=== PATIENT | female | born 1985 | race Caucasian/White ===

== ENCOUNTER 2016-10-04 18:49 | Emergency (ER) | payer OTHER, MEDICAID ==
[~2016-10-04 18:49] MED LIST: IBUP80TA PO; PERCOCET PO; VITAPRTA PO
[2016-10-04 22:11] LABS: BASO % 0.4 % (0.0-1.0); EOS # 0.4 K/mm3 (0.0-0.50); EOS % 4.7 % (0.0-3.0); LARGE UNSTAINED CELL # 0.1 K/mm3 (0.0-0.4); LARGE UNSTAINED CELL % 1.7 % (0.0-4.0); LYMPH # 3.3 K/mm3 (1.5-4.5); LYMPH % 43.4 % (24.0-44.0); MEAN CORPUSCULAR HEMOGLOBIN 22.1 pg (27.0-33.0); MEAN CORPUSCULAR HGB CONC 29.7 g/dl (32.0-36.5); MEAN CORPUSCULAR VOLUME 74.3 fl (80.0-96.0); MONO # 0.3 K/mm3 (0.0-0.8); MONO % 3.2 % (0.0-5.0); NEUTROPHILS # 3.6 K/mm3 (1.8-7.7); NEUTROPHILS % 46.6 % (36.0-66.0); PLATELET COUNT, AUTOMATED 289 k/mm3 (150-450); RED CELL DISTRIBUTION WIDTH 16.9 % (11.5-14.5); WHITE BLOOD COUNT 7.7 K/mm3 (4.0-10.0)
[2016-10-04 22:34] LABS: ADD MORPHOLOGY? YES; HYPOCHROMASIA 2+
[2016-10-04 22:35] LABS: ANISOCYTOSIS 1+; MICROCYTOSIS 1+
[2016-10-04 23:17] LABS: ANION GAP 8 MEQ/L (8-16); BLOOD UREA NITROGEN 6 MG/DL (7-18); CALCIUM LEVEL 8.4 MG/DL (8.5-10.1); CARBON DIOXIDE LEVEL 23 MEQ/L (21-32); CHLORIDE LEVEL 112 MEQ/L (98-107); CREATININE FOR GFR 0.62 MG/DL (0.55-1.02); GLOMERULAR FILTRATION RATE > 60.0 (>60); GLUCOSE, FASTING 93 MG/DL (70-105); POTASSIUM SERUM 3.9 MEQ/L (3.5-5.1); SODIUM LEVEL 143 MEQ/L (136-145)
--- NOTE | 2016-10-05 00:23 | EDDOCDS ---
Nurse's Notes [facility] Name: Samaria Beckman Age: 31 yrs Sex: Female : 1985 Arrival Date: 10/04/2016 Time: 18:49 Bed I4 / M4 Private MD: Alyssia - Complete Info On Cds Diagnosis: Dizziness and giddiness-VERTIGO Presentation: 10/04 19:14 Presenting complaint: states: dizziness, palpitation, nausea, feeling hot and rs3 cold, felt was going to pass out since this morning. Speech/hearing impaired. Adult Sepsis Screening: The patient does not have new or worsening altered mentation. Patient's respiratory rate is less than 22. Systolic blood pressure is greater than 100. Patient has a qSOFA score of 0- Negative Sepsis Screen. Suicide/Homicide risk assessment- the patient denies having any suicidal and/or homicidal ideations and does not present with any other emotional, behavioral or mental health complaints. Status: The patient is a dependent. Transition of care: patient was not received from another setting of care. 19:14 Acuity: CHETAN Level 3 rs3 19:14 Method Of Arrival: Walkin/Carried/Asstd rs3 Triage Assessment: 19:18 General: Appears in no apparent distress. Pain: Denies pain. Pt Declines HIV testing. 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 none - PMHx: hearing/speech impaired; - PSHx: Appendectomy; ; Cholecystectomy; cochlear implants; - Social history: Smoking status: Patient uses tobacco products, heavy tobacco smoker. No barriers to communication noted, Speaks appropriately for age. - Family history: Not pertinent. - : The pt / caregiver states he / she is not on anticoagulants. Home medication list is obtained from family members. - Exposure Risk Screening:: None identified. Screenin/13 00:19 Screening information is obtained from the patient. Fall risk: No risks identified. rw1 Assistance ADL's: requires no assistance with activities of daily living. Abuse/DV Screen: The patient / caregiver reports he/she is: not in a situation that causes fear, pain or injury. Nutritional screening: No deficits noted. Advance Directives: Currently, there is no health care proxy. home support is adequate. Assessment: 10/04 21:55 General: Appears in no apparent distress, Behavior is cooperative. Neurological: Level ms2 of Consciousness is awake, alert, obeys commands. Respiratory: No deficits noted. Airway is patent Respiratory effort is even, unlabored, Respiratory pattern is regular, symmetrical. GI: Abdomen is flat, non- distended. Derm: Skin is pink, warm & dry. Musculoskeletal: Range of motion intact in all extremities. 10/05 00:19 Reassessment: Patient appears in no apparent distress at this time. Patient denies pain rw1 at this time. Patient states feeling better. Patient states symptoms have improved. Vital Signs: 10/04 18:52 BP 117 / 76; Pulse 70; Resp 18 S; Temp 98.0(O); Pulse Ox 100% on R/A; Weight 42.18 kg gr2 (M); Height 5 ft. 0 in. (152.40 cm) (R); Pain 4/10; 21:34 BP 113 / 60 Supine; Pulse 63; ajs 21:34 BP 113 / 64 Sitting; Pulse 59; ajs 21:34 BP 119 / 66 Standing; Pulse 62; ajs 10/05 00:09 BP 107 / 57; Pulse 62; Resp 18; Temp 97.2; Pulse Ox 98% ; Pain 0/10; ajs 10/04 18:52 Body Mass Index 18.16 (42.18 kg, 152.40 cm) gr2 Vitals: 10/04 18:52 Log In Time: October 04, 2016 at 18:52. gr2 ED Course: 18:51 Patient visited by Regina Victoria. gr2 18:51 Patient moved to Waiting gr2 18:52 Other - Complete Info On Cds is Private Physician. gr2 18:53 Patient visited by Regina Victoria. gr2 18:53 Patient moved to Pre RCE gr2 19:17 Triage Initiated rs3 20:53 Patient moved to Triage 2 ld5 21:06 Jose Bella RPA-C is PHCP. ck7 21:06 Matthias Eugene DO is Attending Physician. ck7 21:06 Patient visited by Jose Bella RPA-C. ck7 21:17 EKG done. (by ED staff). Reviewed by Jose BUTTS. ld5 21:26 Patient moved to I4 / M4 ajs 21:35 Patient visited by Kalee Dean. ajs 21:55 Inserted peripheral IV: 20gauge IV in left hand Patient tolerated the procedure well. ms2 No procedures done that require assistance. 21:59 Patient visited by Kalee Dean. ajs 22:01 Patient visited by Thomas Browning RN. ms2 22:01 MED Profile Sent. ms2 22:01 CBC with Diff Sent. ms2 22:17 Patient visited by Thomas Browning RN. ms2 22:18 Missed attempts: 20 gauge X 1 in right antecubital area, Bleeding controlled, band aid ms2 applied, catheter tip intact. 22:49 Patient visited by Jose Bella RPA-C. ck7 23:18 Patient visited by Jose Bella RPA-C. ck7 23:36 [facility] Payment Agreement was scanned into [employer] and attached to record. ks16 10/05 00:03 Patient visited by Jose Bella RPA-C. ck7 00:10 Patient visited by Kalee Dean. ajs 00:19 The patient / caregiver is instructed regarding the plan of care and ED course. rw1 00:19 Discontinued IV lock intact, bleeding controlled, pressure dressing applied, No rw1 redness/swelling at site. Administered Medications: 10/04 22:10 Drug: Meclizine 25 mg [meclizine 12.5 mg tablet (2 tabs)] Route: PO; ms2 10/05 00:20 Follow up: Response: No Adverse Reaction rw10/04 22:10 Drug: NS 0.9% 1000 ml [sodium chloride 0.9 % injection syringe] Route: IV; Rate: bolus; ms2 Site: left hand; 10/05 00:21 Follow up: IV Status: Completed infusion rw1 10/04 22:13 Drug: Metoclopramide 10 mg [metoclopramide 5 mg/mL injection solution] Route: IV; Rate: ms2 40 mg/hr; Infused Over: 15 mins; Site: left hand; Point of Care Testing: Urine : 21:59 hCG Reading: Negative; Control Reading: Positive; ajs Ranges: Order Results: Lab Order: CBC with Diff; SPEC'M 10/04/16 21:43 Test: WHITE BLOOD COUNT; Value: 7.7; Range: 4.0-10.0; Units: K/mm3; Status: F Test: RED BLOOD COUNT; Value: 4.56; Range: 4.00-5.40; Units: M/mm3; Status: F Test: HEMOGLOBIN; Value: 10.1; Range: 12.0-16.0; Abnormal: Below low normal; Units: g/dl; Status: F Test: HEMATOCRIT; Value: 33.9; Range: 36.0-47.0; Abnormal: Below low normal; Units: %; Status: F Test: MEAN CORPUSCULAR VOLUME; Value: 74.3; Range: 80.0-96.0; Abnormal: Below low normal; Units: fl; Status: F Test: MEAN CORPUSCULAR HEMOGLOBIN; Value: 22.1; Range: 27.0-33.0; Abnormal: Below low normal; Units: pg; Status: F Test: MEAN CORPUSCULAR HGB CONC; Value: 29.7; Range: 32.0-36.5; Abnormal: Below low normal; Units: g/dl; Status: F Test: RED CELL DISTRIBUTION WIDTH; Value: 16.9; Range: 11.5-14.5; Abnormal: Above high normal; Units: %; Status: F Test: PLATELET COUNT, AUTOMATED; Value: 289; Range: 150-450; Units: k/mm3; Status: F Test: NEUTROPHILS %; Value: 46.6; Range: 36.0-66.0; Units: %; Status: F Test: LYMPH %; Value: 43.4; Range: 24.0-44.0; Units: %; Status: F Test: MONO %; Value: 3.2; Range: 0.0-5.0; Units: %; Status: F Test: EOS %; Value: 4.7; Range: 0.0-3.0; Abnormal: Above high normal; Units: %; Status: F Test: BASO %; Value: 0.4; Range: 0.0-1.0; Units: %; Status: F Test: LARGE UNSTAINED CELL %; Value: 1.7; Range: 0.0-4.0; Units: %; Status: F Test: NEUTROPHILS #; Value: 3.6; Range: 1.8-7.7; Units: K/mm3; Status: F Test: LYMPH #; Value: 3.3; Range: 1.5-4.5; Units: K/mm3; Status: F Test: MONO #; Value: 0.3; Range: 0.0-0.8; Units: K/mm3; Status: F Test: EOS #; Value: 0.4; Range: 0.0-0.50; Units: K/mm3; Status: F Test: BASO #; Value: 0.0; Range: 0.0-0.2; Units: K/mm3; Status: F Test: LARGE UNSTAINED CELL #; Value: 0.1; Range: 0.0-0.4; Units: K/mm3; Status: F Lab Order: MED Profile; SPEC'M 10/04/16 22:45 Test: GLUCOSE, FASTING; Value: 93; Range: 70-105; Units: MG/DL; Status: F Test: BLOOD UREA NITROGEN; Value: 6; Range: 7-18; Abnormal: Below low normal; Units: MG/DL; Status: F Test: CREATININE FOR GFR; Value: 0.62; Range: 0.55-1.02; Units: MG/DL; Status: F Test: GLOMERULAR FILTRATION RATE; Value: > 60.0; Range: >60; Status: F Test: SODIUM LEVEL; Value: 143; Range: 136-145; Units: MEQ/L; Status: F Test: POTASSIUM SERUM; Value: 3.9; Range: 3.5-5.1; Units: MEQ/L; Status: F Test: CHLORIDE LEVEL; Value: 112; Range: 98-107; Abnormal: Above high normal; Units: MEQ/L; Status: F Test: CARBON DIOXIDE LEVEL; Value: 23; Range: 21-32; Units: MEQ/L; Status: F Test: ANION GAP; Value: 8; Range: 8-16; Units: MEQ/L; Status: F Test: CALCIUM LEVEL; Value: 8.4; Range: 8.5-10.1; Abnormal: Below low normal; Units: MG/DL; Status: F Test Note: ; Units are mL/min/1.73 m2 Chronic Kidney Disease Staging per NKF: Stage I & II GFR >=60 Normal to Mildly Decreased Stage III GFR 30-59 Moderately Decreased Stage IV GFR 15-29 Severely Decreased Stage V GFR <15 Very Little GFR Left ESRD GFR <15 on RESIDENT HALL DIRECTOR Lab Order: RBC MORPH PROF NO CHARGE; SPEC'M 10/04/16 21:43 Test: HYPOCHROMASIA; Value: 2+; Status: F Test: ANISOCYTOSIS; Value: 1+; Status: F Test: MICROCYTOSIS; Value: 1+; Status: F Test: PLATELET ESTIMATE; Value: NORMAL; Range: NORMAL; Status: F Outcome: 10/05 00:08 Discharge ordered by Provider. ck7 00:21 Discharge Assessment: Patient awake, alert and oriented x 3. No cognitive and/or rw1 functional deficits noted. Patient verbalized understanding of disposition instructions. patient administered narcotics - no. The following High Risk Discharge criteria are identified: None. Discharged to home ambulatory, with significant other. Condition: stable Condition: improved. Discharge instructions given to patient, Instructed on discharge instructions, follow up and referral plans. medication usage, Demonstrated understanding of instructions, medications, Pt was receptive of discharge instructions/ teaching. Prescriptions given X 2. No special radiology studies were completed. Property sent home with patient. 00:22 Patient left the ED. rw1 Signatures: Thomas Browning,RN RN ms2 Rafat Sanders LPN LPN rw1 Kiana Garcia RN RN rs3 Zaira Padilla,RN RN ld5 Kalee Dean Christopher, RPA-C RPA-Cck7 Regina Victoria gr2 Jonelle Rizvi, Reg Reg ks16 Corrections: (The following items were deleted from the chart) 10/04 21:35 21:34 BP 113 / 60; Pulse 63bpm; ajs ajchad MTDD
--- NOTE | 2016-10-05 00:23 | EDDOCDS ---
Physician Documentation [facility] Name: Samaria Beckman Age: 31 yrs Sex: Female : 1985 Arrival Date: 10/04/2016 Time: 18:49 Bed I4 / M4 Private MD: Other - Complete Info On Cds Disposition: 10/05/16 00:08 Discharged to Home/Self Care. Impression: Dizziness and giddiness - VERTIGO. - Condition is Stable. - Discharge Instructions: Vertigo, [id number]. - Prescriptions for Meclizine 25 mg Oral Tablet - take 1 tablet by ORAL route every 8 hours As needed; 30 tablet. Reglan 10 mg Oral Tablet - take 1 tablet by ORAL route every 6 hours take 30 minutes before meals and at bedtime; 20 tablet. - Medication Reconciliation, Local Pharmacy Hours form. - Follow up: Private Physician; When: 1 - 2 days; Reason: Recheck today's complaints, Continuance of care. - Problem is new. - Symptoms have improved. - Notes: USE MEDICATIONS INSTRUCTED, FOLLOW UP WITH YOUR DOCTOR IN 2-3 DAYS, RETURN TO THE ER IF THE SYMPTOMS WORSEN OR BECOME CONCERNING Historical: - Allergies: PENICILLINS (Rash); - Home Meds: 1. none - PMHx: hearing/speech impaired; - PSHx: Appendectomy; ; Cholecystectomy; cochlear implants; - Social history: Smoking status: Patient uses tobacco products, heavy tobacco smoker. No barriers to communication noted, Speaks appropriately for age. - Family history: Not pertinent. - : The pt / caregiver states he / she is not on anticoagulants. Home medication list is obtained from family members. - Exposure Risk Screening:: None identified. 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 0 in. (152.40 cm) (R); Pain 4/10; 21:34 BP 113 / 60 Supine; Pulse 63; ajs 21:34 BP 113 / 64 Sitting; Pulse 59; ajs 21:34 BP 119 / 66 Standing; Pulse 62; ajs 10/05 00:09 BP 107 / 57; Pulse 62; Resp 18; Temp 97.2; Pulse Ox 98% ; Pain 0/10; ajs 10/04 18:52 Body Mass Index 18.16 (42.18 kg, 152.40 cm) gr2 MDM: 10/04 20:58 ECG WITH READING ER PHYS+CARDIAG ordered. EDMS 21:24 UCG by Nursing ordered. ck7 21:24 IV Saline Lock ordered. ck7 21:24 Metoclopramide 10 mg IV at 40 mg/hr once over 15 mins ordered. ck7 21:24 Meclizine 25 mg PO once ordered. ck7 21:24 NS 0.9% 1000 ml IV at bolus once ordered. ck7 21:24 Orthostatic VS ordered. ck7 21:24 CBC with Diff Ordered. EDMS 21:24 MED Profile Ordered. EDMS 22:40 CBC with Diff Reviewed. ck7 22:40 RBC MORPH PROF NO CHARGE Reviewed. ck7 22:52 Financial registration complete. ks16 23:19 MED Profile Reviewed. ck7 23:36 [facility] [place] was scanned into [employer] and attached to record. ks16 10/05 00:04 Ambulate Patient to Assess Patient Safety ordered. ck7 Point of Care Testing: Urine : 10/04 21:59 hCG Reading: Negative; Control Reading: Positive; ajs Ranges: Administered Medications: 22:10 Drug: Meclizine 25 mg [meclizine 12.5 mg tablet (2 tabs)] Route: PO; ms2 10/05 00:20 Follow up: Response: No Adverse Reaction [facility] 10/04 22:10 Drug: NS 0.9% 1000 ml [sodium chloride 0.9 % injection syringe] Route: IV; Rate: bolus; ms2 Site: left hand; 10/05 00:21 Follow up: IV Status: Completed infusion rw1 10/04 22:13 Drug: Metoclopramide 10 mg [metoclopramide 5 mg/mL injection solution] Route: IV; Rate: ms2 40 mg/hr; Infused Over: 15 mins; Site: left hand; Signatures: Dispatcher [employer] EDMT Rafat Sanders LPN LPN rw1 Kiana Garcia RN RN rs3 Jose Bella, RPA-C RPA-Jonelle Iqbal, Reg Reg ks16 Thomas Browning RN ms2 The chart was reviewed and I authenticate all verbal orders and agree with the evaluation and treatment provided.Attachments: 23:36 [facility] [place] ks16 MTDD
--- NOTE | 2016-10-05 08:44 | ECGEPIP ---
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 RBBB NONSPECIFIC T WAVE ABNORMALITIES NO PRIORS Electronically Signed On 10-05-2016 8:44:27 EST by Robert Orta
--- NOTE | 2016-10-07 01:23 | EDDOCDS ---
Physician Documentation [facility] Name: Samaria Beckman Age: 31 yrs Sex: Female : 1985 Arrival Date: 10/04/2016 Time: 18:49 Bed I4 / M4 Private MD: Other - Complete Info On Cds Disposition: 10/05/16 00:08 Discharged to Home/Self Care. Impression: Dizziness and giddiness - VERTIGO. - Condition is Stable. - Discharge Instructions: Vertigo, [id number]. - Prescriptions for Meclizine 25 mg Oral Tablet - take 1 tablet by ORAL route every 8 hours As needed; 30 tablet. Reglan 10 mg Oral Tablet - take 1 tablet by ORAL route every 6 hours take 30 minutes before meals and at bedtime; 20 tablet. - Medication Reconciliation, Local Pharmacy Hours form. - Follow up: Private Physician; When: 1 - 2 days; Reason: Recheck today's complaints, Continuance of care. - Problem is new. - Symptoms have improved. - Notes: USE MEDICATIONS INSTRUCTED, FOLLOW UP WITH YOUR DOCTOR IN 2-3 DAYS, RETURN TO THE ER IF THE SYMPTOMS WORSEN OR BECOME CONCERNING Historical: - Allergies: PENICILLINS (Rash); - Home Meds: 1. none - PMHx: hearing/speech impaired; - PSHx: Appendectomy; ; Cholecystectomy; cochlear implants; - Social history: Smoking status: Patient uses tobacco products, heavy tobacco smoker. No barriers to communication noted, Speaks appropriately for age. - Family history: Not pertinent. - : The pt / caregiver states he / she is not on anticoagulants. Home medication list is obtained from family members. - Exposure Risk Screening:: None identified. 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 0 in. (152.40 cm) (R); Pain 4/10; 21:34 BP 113 / 60 Supine; Pulse 63; ajs 21:34 BP 113 / 64 Sitting; Pulse 59; ajs 21:34 BP 119 / 66 Standing; Pulse 62; ajs 10/05 00:09 BP 107 / 57; Pulse 62; Resp 18; Temp 97.2; Pulse Ox 98% ; Pain 0/10; ajs 10/04 18:52 Body Mass Index 18.16 (42.18 kg, 152.40 cm) gr2 MDM: 10/04 20:58 ECG WITH READING ER PHYS+CARDIAG ordered. EDMS 21:24 UCG by Nursing ordered. ck7 21:24 IV Saline Lock ordered. ck7 21:24 Metoclopramide 10 mg IV at 40 mg/hr once over 15 mins ordered. ck7 21:24 Meclizine 25 mg PO once ordered. ck7 21:24 NS 0.9% 1000 ml IV at bolus once ordered. ck7 21:24 Orthostatic VS ordered. ck7 21:24 CBC with Diff Ordered. EDMS 21:24 MED Profile Ordered. EDMS 22:40 CBC with Diff Reviewed. ck7 22:40 RBC MORPH PROF NO CHARGE Reviewed. ck7 22:52 Financial registration complete. ks16 23:19 MED Profile Reviewed. ck7 23:36 [facility] Payment Agreement was scanned into [employer] and attached to record. ks16 10/05 00:04 Ambulate Patient to Assess Patient Safety ordered. ck7 09:38 T-Sheet-- Draft Copy was scanned into [employer] and attached to record. gb 09:39 ECG/EKG was scanned into [employer] and attached to record. gb Point of Care Testing: Urine : 10/04 21:59 hCG Reading: Negative; Control Reading: Positive; ajs Ranges: Administered Medications: 22:10 Drug: Meclizine 25 mg [meclizine 12.5 mg tablet (2 tabs)] Route: PO; ms2 10/05 00:20 Follow up: Response: No Adverse Reaction rw10/04 22:10 Drug: NS 0.9% 1000 ml [sodium chloride 0.9 % injection syringe] Route: IV; Rate: bolus; ms2 Site: left hand; 10/05 00:21 Follow up: IV Status: Completed infusion rw10/04 22:13 Drug: Metoclopramide 10 mg [metoclopramide 5 mg/mL injection solution] Route: IV; Rate: ms2 40 mg/hr; Infused Over: 15 mins; Site: left hand; Signatures: Dispatcher [employer] EDMS Leona Rodriguez, Reg Reg gb Rafat Sanders,HYDRAULIC LIFT DRIVER HYDRAULIC LIFT DRIVER rw1 Kiana Garcia,RN RN rs3 Jsoe Bella, RPA-C RPA-Cck7 Jonelle Rizvi, Reg Reg ks16 Thomas Browning RN ms2 The chart was reviewed and I authenticate all verbal orders and agree with the evaluation and treatment provided.Attachments: 23:36 [facility] Payment Agreement ks16 10/05 09:38 T-Sheet-- Draft Copy gb 09:39 ECG/EKG gb Chart Complete MTDD
--- NOTE | 2016-10-07 01:23 | EDDOCDS ---
Nurse's Notes [facility] Name: Jemima Beckman Age: 31 yrs Sex: Female : 1985 Arrival Date: 10/04/2016 Time: 18:49 Bed I4 / M4 Private MD: Alyssia - Complete Info On Cds Diagnosis: Dizziness and giddiness-VERTIGO Presentation: 10/04 19:14 Presenting complaint: states: dizziness, palpitation, nausea, feeling hot and rs3 cold, felt was going to pass out since this morning. Speech/hearing impaired. Adult Sepsis Screening: The patient does not have new or worsening altered mentation. Patient's respiratory rate is less than 22. Systolic blood pressure is greater than 100. Patient has a qSOFA score of 0- Negative Sepsis Screen. Suicide/Homicide risk assessment- the patient denies having any suicidal and/or homicidal ideations and does not present with any other emotional, behavioral or mental health complaints. Status: The patient is a dependent. Transition of care: patient was not received from another setting of care. 19:14 Acuity: CHETAN Level 3 rs3 19:14 Method Of Arrival: Walkin/Carried/Asstd rs3 Triage Assessment: 19:18 General: Appears in no apparent distress. Pain: Denies pain. Pt Declines HIV testing. 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 none - PMHx: hearing/speech impaired; - PSHx: Appendectomy; ; Cholecystectomy; cochlear implants; - Social history: Smoking status: Patient uses tobacco products, heavy tobacco smoker. No barriers to communication noted, Speaks appropriately for age. - Family history: Not pertinent. - : The pt / caregiver states he / she is not on anticoagulants. Home medication list is obtained from family members. - Exposure Risk Screening:: None identified. Screenin/13 00:19 Screening information is obtained from the patient. Fall risk: No risks identified. rw1 Assistance ADL's: requires no assistance with activities of daily living. Abuse/DV Screen: The patient / caregiver reports he/she is: not in a situation that causes fear, pain or injury. Nutritional screening: No deficits noted. Advance Directives: Currently, there is no health care proxy. home support is adequate. Assessment: 10/04 21:55 General: Appears in no apparent distress, Behavior is cooperative. Neurological: Level ms2 of Consciousness is awake, alert, obeys commands. Respiratory: No deficits noted. Airway is patent Respiratory effort is even, unlabored, Respiratory pattern is regular, symmetrical. GI: Abdomen is flat, non- distended. Derm: Skin is pink, warm & dry. Musculoskeletal: Range of motion intact in all extremities. 10/05 00:19 Reassessment: Patient appears in no apparent distress at this time. Patient denies pain rw1 at this time. Patient states feeling better. Patient states symptoms have improved. Vital Signs: 10/04 18:52 BP 117 / 76; Pulse 70; Resp 18 S; Temp 98.0(O); Pulse Ox 100% on R/A; Weight 42.18 kg gr2 (M); Height 5 ft. 0 in. (152.40 cm) (R); Pain 4/10; 21:34 BP 113 / 60 Supine; Pulse 63; ajs 21:34 BP 113 / 64 Sitting; Pulse 59; ajs 21:34 BP 119 / 66 Standing; Pulse 62; ajs 10/05 00:09 BP 107 / 57; Pulse 62; Resp 18; Temp 97.2; Pulse Ox 98% ; Pain 0/10; ajs 10/04 18:52 Body Mass Index 18.16 (42.18 kg, 152.40 cm) gr2 Vitals: 10/04 18:52 Log In Time: October 04, 2016 at 18:52. gr2 ED Course: 18:51 Patient visited by Regina Victoria. gr2 18:51 Patient moved to Waiting gr2 18:52 Other - Complete Info On Cds is Private Physician. gr2 18:53 Patient visited by Regina Victoria. gr2 18:53 Patient moved to Pre RCE gr2 19:17 Triage Initiated rs3 20:53 Patient moved to Triage 2 ld5 21:06 Jose Bella RPA-C is PHCP. ck7 21:06 Matthias Eugene DO is Attending Physician. ck7 21:06 Patient visited by Jose Bella RPA-C. ck7 21:17 EKG done. (by ED staff). Reviewed by Jose BUTTS. ld5 21:26 Patient moved to I4 / M4 ajs 21:35 Patient visited by Kalee Dean. ajs 21:55 Inserted peripheral IV: 20gauge IV in left hand Patient tolerated the procedure well. ms2 No procedures done that require assistance. 21:59 Patient visited by Kalee Dean. ajs 22:01 Patient visited by Thomas Browning RN. ms2 22:01 MED Profile Sent. ms2 22:01 CBC with Diff Sent. ms2 22:17 Patient visited by Thomas Browning RN. ms2 22:18 Missed attempts: 20 gauge X 1 in right antecubital area, Bleeding controlled, band aid ms2 applied, catheter tip intact. 22:49 Patient visited by Jose Bella RPA-C. ck7 23:18 Patient visited by Jose Bella RPA-C. ckHumaira 23:36 [facility] Payment Agreement was scanned into [employer] and attached to record. ks16 10/05 00:03 Patient visited by Jose Bella RPA-C. ck7 00:10 Patient visited by Kalee Dean. ajs 00:19 The patient / caregiver is instructed regarding the plan of care and ED course. rw1 00:19 Discontinued IV lock intact, bleeding controlled, pressure dressing applied, No rw1 redness/swelling at site. 09:06 EKG-ADULT Returned. EDMS 09:38 T-Sheet-- Draft Copy was scanned into [employer] and attached to record. gb 09:39 ECG/EKG was scanned into [employer] and attached to record. gb Administered Medications: 10/04 22:10 Drug: Meclizine 25 mg [meclizine 12.5 mg tablet (2 tabs)] Route: PO; ms2 10/05 00:20 Follow up: Response: No Adverse Reaction rw1 10/04 22:10 Drug: NS 0.9% 1000 ml [sodium chloride 0.9 % injection syringe] Route: IV; Rate: bolus; ms2 Site: left hand; 10/05 00:21 Follow up: IV Status: Completed infusion rw1 10/04 22:13 Drug: Metoclopramide 10 mg [metoclopramide 5 mg/mL injection solution] Route: IV; Rate: ms2 40 mg/hr; Infused Over: 15 mins; Site: left hand; Point of Care Testing: Urine : 21:59 hCG Reading: Negative; Control Reading: Positive; ajs Ranges: Order Results: Lab Order: CBC with Diff; SPEC'M 10/04/16 21:43 Test: WHITE BLOOD COUNT; Value: 7.7; Range: 4.0-10.0; Units: K/mm3; Status: F Test: RED BLOOD COUNT; Value: 4.56; Range: 4.00-5.40; Units: M/mm3; Status: F Test: HEMOGLOBIN; Value: 10.1; Range: 12.0-16.0; Abnormal: Below low normal; Units: g/dl; Status: F Test: HEMATOCRIT; Value: 33.9; Range: 36.0-47.0; Abnormal: Below low normal; Units: %; Status: F Test: MEAN CORPUSCULAR VOLUME; Value: 74.3; Range: 80.0-96.0; Abnormal: Below low normal; Units: fl; Status: F Test: MEAN CORPUSCULAR HEMOGLOBIN; Value: 22.1; Range: 27.0-33.0; Abnormal: Below low normal; Units: pg; Status: F Test: MEAN CORPUSCULAR HGB CONC; Value: 29.7; Range: 32.0-36.5; Abnormal: Below low normal; Units: g/dl; Status: F Test: RED CELL DISTRIBUTION WIDTH; Value: 16.9; Range: 11.5-14.5; Abnormal: Above high normal; Units: %; Status: F Test: PLATELET COUNT, AUTOMATED; Value: 289; Range: 150-450; Units: k/mm3; Status: F Test: NEUTROPHILS %; Value: 46.6; Range: 36.0-66.0; Units: %; Status: F Test: LYMPH %; Value: 43.4; Range: 24.0-44.0; Units: %; Status: F Test: MONO %; Value: 3.2; Range: 0.0-5.0; Units: %; Status: F Test: EOS %; Value: 4.7; Range: 0.0-3.0; Abnormal: Above high normal; Units: %; Status: F Test: BASO %; Value: 0.4; Range: 0.0-1.0; Units: %; Status: F Test: LARGE UNSTAINED CELL %; Value: 1.7; Range: 0.0-4.0; Units: %; Status: F Test: NEUTROPHILS #; Value: 3.6; Range: 1.8-7.7; Units: K/mm3; Status: F Test: LYMPH #; Value: 3.3; Range: 1.5-4.5; Units: K/mm3; Status: F Test: MONO #; Value: 0.3; Range: 0.0-0.8; Units: K/mm3; Status: F Test: EOS #; Value: 0.4; Range: 0.0-0.50; Units: K/mm3; Status: F Test: BASO #; Value: 0.0; Range: 0.0-0.2; Units: K/mm3; Status: F Test: LARGE UNSTAINED CELL #; Value: 0.1; Range: 0.0-0.4; Units: K/mm3; Status: F Lab Order: MED Profile; SPEC'M 10/04/16 22:45 Test: GLUCOSE, FASTING; Value: 93; Range: 70-105; Units: MG/DL; Status: F Test: BLOOD UREA NITROGEN; Value: 6; Range: 7-18; Abnormal: Below low normal; Units: MG/DL; Status: F Test: CREATININE FOR GFR; Value: 0.62; Range: 0.55-1.02; Units: MG/DL; Status: F Test: GLOMERULAR FILTRATION RATE; Value: > 60.0; Range: >60; Status: F Test: SODIUM LEVEL; Value: 143; Range: 136-145; Units: MEQ/L; Status: F Test: POTASSIUM SERUM; Value: 3.9; Range: 3.5-5.1; Units: MEQ/L; Status: F Test: CHLORIDE LEVEL; Value: 112; Range: 98-107; Abnormal: Above high normal; Units: MEQ/L; Status: F Test: CARBON DIOXIDE LEVEL; Value: 23; Range: 21-32; Units: MEQ/L; Status: F Test: ANION GAP; Value: 8; Range: 8-16; Units: MEQ/L; Status: F Test: CALCIUM LEVEL; Value: 8.4; Range: 8.5-10.1; Abnormal: Below low normal; Units: MG/DL; Status: F Test Note: ; Units are mL/min/1.73 m2 Chronic Kidney Disease Staging per NKF: Stage I & II GFR >=60 Normal to Mildly Decreased Stage III GFR 30-59 Moderately Decreased Stage IV GFR 15-29 Severely Decreased Stage V GFR <15 Very Little GFR Left ESRD GFR <15 on [employer] Lab Order: RBC MORPH PROF NO CHARGE; SPEC'M 10/04/16 21:43 Test: HYPOCHROMASIA; Value: 2+; Status: F Test: ANISOCYTOSIS; Value: 1+; Status: F Test: MICROCYTOSIS; Value: 1+; Status: F Test: PLATELET ESTIMATE; Value: NORMAL; Range: NORMAL; Status: F Radiology Order: EKG-ADULT Test: EKG-ADULT REASON FOR EXAMINATION: Chest Pain; Stationary ECG Study; [facility] - ED; ; Test Date: 2016-10-04; Pat Name: JEMIMA BECKMAN Department:; Room: -; Gender: F 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 RBBB; NONSPECIFIC T WAVE ABNORMALITIES; NO PRIORS; Electronically Signed On 10-05-2016 8:44:27 EST by Robert Orta; Outcome: 10/05 00:08 Discharge ordered by Provider. ck7 00:21 Discharge Assessment: Patient awake, alert and oriented x 3. No cognitive and/or rw1 functional deficits noted. Patient verbalized understanding of disposition instructions. patient administered narcotics - no. The following High Risk Discharge criteria are identified: None. Discharged to home ambulatory, with significant other. Condition: stable Condition: improved. Discharge instructions given to patient, Instructed on discharge instructions, follow up and referral plans. medication usage, Demonstrated understanding of instructions, medications, Pt was receptive of discharge instructions/ teaching. Prescriptions given X 2. No special radiology studies were completed. Property sent home with patient. 00:22 Patient left the ED. rw1 Signatures: Dispatcher [employer] Thomas FreemanRN RN ms2 Leona Rodriguez, Reg Reg gb Rafat Sanders,CLIENT DELIVERY MANAGER CLIENT DELIVERY MANAGER rw1 Kiana Garcia RN RN rs3 Zaira Padilla RN RN ld5 Kalee Dean Christopher, RPA-C RPA-Cck7 Regina Victoria2 Jonelle Rizvi, Reg Reg ks16 Corrections: (The following items were deleted from the chart) 10/04 21:35 21:34 BP 113 / 60; Pulse 63bpm; ajs kristie Chart Complete MTDD
--- NOTE | 2016-10-07 01:23 | EDDOCDS ---
Physician Documentation [facility] Name: Samaria Beckman Age: 31 yrs Sex: Female : 1985 Arrival Date: 10/04/2016 Time: 18:49 Bed I4 / M4 Private MD: Other - Complete Info On Cds Disposition: 10/05/16 00:08 Discharged to Home/Self Care. Impression: Dizziness and giddiness - VERTIGO. - Condition is Stable. - Discharge Instructions: Vertigo, [id number]. - Prescriptions for Meclizine 25 mg Oral Tablet - take 1 tablet by ORAL route every 8 hours As needed; 30 tablet. Reglan 10 mg Oral Tablet - take 1 tablet by ORAL route every 6 hours take 30 minutes before meals and at bedtime; 20 tablet. - Medication Reconciliation, Local Pharmacy Hours form. - Follow up: Private Physician; When: 1 - 2 days; Reason: Recheck today's complaints, Continuance of care. - Problem is new. - Symptoms have improved. - Notes: USE MEDICATIONS INSTRUCTED, FOLLOW UP WITH YOUR DOCTOR IN 2-3 DAYS, RETURN TO THE ER IF THE SYMPTOMS WORSEN OR BECOME CONCERNING Historical: - Allergies: PENICILLINS (Rash); - Home Meds: 1. none - PMHx: hearing/speech impaired; - PSHx: Appendectomy; ; Cholecystectomy; cochlear implants; - Social history: Smoking status: Patient uses tobacco products, heavy tobacco smoker. No barriers to communication noted, Speaks appropriately for age. - Family history: Not pertinent. - : The pt / caregiver states he / she is not on anticoagulants. Home medication list is obtained from family members. - Exposure Risk Screening:: None identified. 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 0 in. (152.40 cm) (R); Pain 4/10; 21:34 BP 113 / 60 Supine; Pulse 63; ajs 21:34 BP 113 / 64 Sitting; Pulse 59; ajs 21:34 BP 119 / 66 Standing; Pulse 62; ajs 10/05 00:09 BP 107 / 57; Pulse 62; Resp 18; Temp 97.2; Pulse Ox 98% ; Pain 0/10; ajs 10/04 18:52 Body Mass Index 18.16 (42.18 kg, 152.40 cm) gr2 MDM: 10/04 20:58 ECG WITH READING ER PHYS+CARDIAG ordered. EDMS 21:24 UCG by Nursing ordered. ck7 21:24 IV Saline Lock ordered. ck7 21:24 Metoclopramide 10 mg IV at 40 mg/hr once over 15 mins ordered. ck7 21:24 Meclizine 25 mg PO once ordered. ck7 21:24 NS 0.9% 1000 ml IV at bolus once ordered. ck7 21:24 Orthostatic VS ordered. ck7 21:24 CBC with Diff Ordered. EDMS 21:24 MED Profile Ordered. EDMS 22:40 CBC with Diff Reviewed. ck7 22:40 RBC MORPH PROF NO CHARGE Reviewed. ck7 22:52 Financial registration complete. ks16 23:19 MED Profile Reviewed. ck7 23:36 [facility] [place] Payment Agreement was scanned into [employer] and attached to record. ks16 10/05 00:04 Ambulate Patient to Assess Patient Safety ordered. ck7 09:38 T-Sheet-- Draft Copy was scanned into [employer] and attached to record. gb 09:39 ECG/EKG was scanned into [employer] and attached to record. gb Point of Care Testing: Urine : 10/04 21:59 hCG Reading: Negative; Control Reading: Positive; ajs Ranges: Administered Medications: 22:10 Drug: Meclizine 25 mg [meclizine 12.5 mg tablet (2 tabs)] Route: PO; ms2 10/05 00:20 Follow up: Response: No Adverse Reaction rw10/04 22:10 Drug: NS 0.9% 1000 ml [sodium chloride 0.9 % injection syringe] Route: IV; Rate: bolus; ms2 Site: left hand; 10/05 00:21 Follow up: IV Status: Completed infusion rw10/04 22:13 Drug: Metoclopramide 10 mg [metoclopramide 5 mg/mL injection solution] Route: IV; Rate: ms2 40 mg/hr; Infused Over: 15 mins; Site: left hand; Signatures: Dispatcher [employer] EDMS Leona Rodriguez, Reg Reg gb Rafat Sanders,EXHAUST EMISSIONS INSPECTOR EXHAUST EMISSIONS INSPECTOR rw1 Kiana Garcia,RN RN rs3 Jose Bella, RPA-C RPA-Cck7 Jonelle Rizvi, Reg Reg ks16 Thomas Browning RN ms2 The chart was reviewed and I authenticate all verbal orders and agree with the evaluation and treatment provided.Attachments: 23:36 [facility] Payment Agreement ks16 10/05 09:38 T-Sheet-- Draft Copy gb 09:39 ECG/EKG gb Chart Complete MTDD
== END 2016-10-05 00:22 | disposition home or self-care (01) ==
LOC: M ED 18:49
DX: R42 Dizziness and giddiness (principal); Z88.0 Allergy status to penicillin; F17.210 Nicotine dependence, cigarettes, uncomplicated

== ENCOUNTER → 2017-01-22 | Day surgery (SDC) | payer OTHER ==
[~2017-01-22] VITALS: Ht 152.4 cm; Wt 41.9 kg
[~2017-01-22] MED LIST changes: +ACETAMINOPHEN 650 MG SUPP As Ordered ONE; +ACETAMINOPHEN 650 MG SUPP PR ONE; +FERR325T3 PO; +HYDROmorphone HCL 1 MG/ML SYRINGE (J1170) IV PRN; +KETOROLAC 30 MG/ML VIAL (J1885) IV PRN; +KETOROLAC 60 MG/2 ML VIAL (J1885) As Ordered ONE; +LIDOCAINE 2% INJ 100 MG/5 ML SDV (FOR ANES.) As Ordered ONE; +LR 1,000 ML IV SCH; +MIDAZOLAM INJ 2 MG/2 ML VIAL (J2250) As Ordered ONE; +NS 1,000 ML IV SCH; +ONDANSETRON 4MG/2ML VIAL (J2405) As Ordered ONE; +ONDANSETRON 4MG/2ML VIAL (J2405) IV PRN; +PERCOCET 5MG/325MG TAB PO PRN; +PROPOFOL 200 MG/20 ML VIAL As Ordered ONE; +SODIUM CHLORIDE 0.9% 1000 ML IV ONE; +WELLTAB38 PO; +dexameTHASONE 4 MG/ML 1ML VIAL (J1100) As Ordered ONE; +ePHEDrine SULFATE 25 MG/5 ML(5MG/ML) SYRINGE As Ordered ONE; +fentaNYL 100 MCG/2 ML INJECTION (J3010) As Ordered ONE; +fentaNYL 100 MCG/2 ML INJECTION (J3010) IV PRN
[2017-01-22 09:25] LABS: MEAN CORPUSCULAR HEMOGLOBIN 30.4 pg (27.0-33.0); MEAN CORPUSCULAR VOLUME 92.1 fl (80.0-96.0); RED CELL DISTRIBUTION WIDTH 15.7 % (11.5-14.5); WHITE BLOOD COUNT 6.8 K/mm3 (4.0-10.0)
[2017-01-22 09:44] LABS: ANION GAP 8 MEQ/L (8-16); BLOOD UREA NITROGEN 10 MG/DL (7-18); CALCIUM LEVEL 8.8 MG/DL (8.5-10.1); CARBON DIOXIDE LEVEL 23 MEQ/L (21-32); CHLORIDE LEVEL 109 MEQ/L (98-107); CREATININE FOR GFR 0.83 MG/DL (0.55-1.02); GLOMERULAR FILTRATION RATE > 60.0 (>60); GLUCOSE, FASTING 89 MG/DL (70-105); HCG, SERUM QUANTITATIVE < 1.0 MIU/ML; POTASSIUM SERUM 3.9 MEQ/L (3.5-5.1); SODIUM LEVEL 140 MEQ/L (136-145)
[2017-01-22 14:00] VITALS: BP 100/55
--- NOTE | 2017-01-29 20:06 | RO ---
DATE OF PROCEDURE: 01/22/2017 PREOPERATIVE NOTE: Dysfunctional uterine bleeding, endometrial polyp. POSTOPERATIVE DIAGNOSIS: Dysfunction uterine bleeding, endometrial polyp, cervical stenosis. OPERATION PROPOSED: Hysteroscopy, dilation and curettage (D and C), placement of Mirena intrauterine contraceptive device (IUCD). OPERATION PERFORMED: Hysteroscopy, dilation and curettage (D and C), placement of Mirena intrauterine contraceptive device (IUCD). SURGEON: Dr. Srinivas Lincoln REGISTERED NURSE PRACTITIONER: ANESTHESIA: General. ESTIMATED BLOOD LOSS: Less than 20 mL. DESCRIPTION OF PROCEDURE: After adequate anesthesia and adequate time-out, prepped and draped in lithotomy position, bladder was drained for 150 mL of clear urine. Weighted speculum in vagina. This lady has extremely poor tissues because she is malnourished and basically the tissue turgor is nonexistent. Therefore, with a single-tooth tenaculum on the anterior lip of the cervix, we found that she had significant cervical stenosis of the retroverted retroflexed uterus. We gently dilated up as far as we could to put at 2.7 mm hysteroscope in the uterus. On examination, there was some polypoid tissue and some fluffy endometrial tissue. This was removed and sent to pathology under separate cover. Os on the right was normal loss, os on the left was normal. The rest of the architecture appeared to be normal. Uterus sounded to a depth of 8 inches. With that done, because this lady requests preservation of her fertility, we put a Mirena IUCD in, cut the strings to 2 inches from the os. The instrument pad counts were correct, and the patient was then sent to recovery in good condition. Copy To: Juan Triana OB
== END ==
LOC: M SDC 08:19
PROVIDERS: ATTEND Obstetrics & Gynecology
DX: N93.9 Abnormal uterine and vaginal bleeding, unspecified (principal); N84.0 Polyp of corpus uteri; N88.2 Stricture and stenosis of cervix uteri; Z30.430 Encounter for insertion of intrauterine contraceptive device; H91.90 Unspecified hearing loss, unspecified ear; F17.210 Nicotine dependence, cigarettes, uncomplicated; Z79.899 Other long term (current) drug therapy
CPT/HCPCS: 36415; 58300; 58558; 80048; 84702; 85027; 88305; J1100; J1885; J2250; J2405; J3010; J7298

== ENCOUNTER 2017-03-31 19:10 | Emergency (ER) | payer OTHER ==
[~2017-03-31] VITALS: Ht 154.9 cm; Wt 41.4 kg
[~2017-03-31 19:10] MED LIST changes: -ACETAMINOPHEN 650 MG SUPP As Ordered ONE; -ACETAMINOPHEN 650 MG SUPP PR ONE; -HYDROmorphone HCL 1 MG/ML SYRINGE (J1170) IV PRN; -KETOROLAC 30 MG/ML VIAL (J1885) IV PRN; -KETOROLAC 60 MG/2 ML VIAL (J1885) As Ordered ONE; -LIDOCAINE 2% INJ 100 MG/5 ML SDV (FOR ANES.) As Ordered ONE; -LR 1,000 ML IV SCH; -MIDAZOLAM INJ 2 MG/2 ML VIAL (J2250) As Ordered ONE; -NS 1,000 ML IV SCH; -ONDANSETRON 4MG/2ML VIAL (J2405) As Ordered ONE; -ONDANSETRON 4MG/2ML VIAL (J2405) IV PRN; -PERCOCET 5MG/325MG TAB PO PRN; -PROPOFOL 200 MG/20 ML VIAL As Ordered ONE; -SODIUM CHLORIDE 0.9% 1000 ML IV ONE; -dexameTHASONE 4 MG/ML 1ML VIAL (J1100) As Ordered ONE; -ePHEDrine SULFATE 25 MG/5 ML(5MG/ML) SYRINGE As Ordered ONE; -fentaNYL 100 MCG/2 ML INJECTION (J3010) As Ordered ONE; -fentaNYL 100 MCG/2 ML INJECTION (J3010) IV PRN
[2017-03-31 22:36] LABS: BASO % 0.4 % (0.0-1.0); EOS # 0.4 K/mm3 (0.0-0.50); EOS % 2.9 % (0.0-3.0); LARGE UNSTAINED CELL # 0.1 K/mm3 (0.0-0.4); LYMPH # 2.5 K/mm3 (1.5-4.5); LYMPH % 18.3 % (24.0-44.0); MEAN CORPUSCULAR HEMOGLOBIN 31.8 pg (27.0-33.0); MEAN CORPUSCULAR HGB CONC 33.8 g/dl (32.0-36.5); MEAN CORPUSCULAR VOLUME 94.1 fl (80.0-96.0); MONO # 0.4 K/mm3 (0.0-0.8); MONO % 3.3 % (0.0-5.0); NEUTROPHILS # 9.7 K/mm3 (1.8-7.7); NEUTROPHILS % 74.1 % (36.0-66.0); PLATELET COUNT, AUTOMATED 244 k/mm3 (150-450); RED CELL DISTRIBUTION WIDTH 12.6 % (11.5-14.5)
[2017-03-31 23:03] LABS: INR 1.06
[2017-03-31 23:12] LABS: CONTROL LINE HCG INT CTR LINE PRESENT
[2017-03-31 23:28] LABS: ANION GAP 7 MEQ/L (8-16); BLOOD UREA NITROGEN 6 MG/DL (7-18); CALCIUM LEVEL 8.8 MG/DL (8.5-10.1); CARBON DIOXIDE LEVEL 24 MEQ/L (21-32); CHLORIDE LEVEL 109 MEQ/L (98-107); CREATININE FOR GFR 0.61 MG/DL (0.55-1.02); FREE T4 1.04 NG/DL (0.76-1.46); GLOMERULAR FILTRATION RATE > 60.0 (>60); GLUCOSE, FASTING 105 MG/DL (70-105); MAGNESIUM LEVEL 2.5 MG/DL (1.8-2.4); PHOSPHORUS LEVEL 2.6 MG/DL (2.5-4.9); POTASSIUM SERUM 3.9 MEQ/L (3.5-5.1); SODIUM LEVEL 140 MEQ/L (136-145)
[2017-03-31 23:53] VITALS: BP 116/52
--- NOTE | 2017-04-01 01:25 | REP ---
Clinical: Near-syncopal episode . Comparison: 12/19/2005 . Technique: PA and lateral. Findings: The mediastinum and cardiac silhouette are normal. The lung toney are clear and without acute consolidation, effusion, or pneumothorax. The skeletal structures are intact and normal. Impression: 1. No acute cardiopulmonary process. Signed by Khurram Bang MD 04/01/2017 01:16 A
--- NOTE | 2017-04-01 05:59 | ECGEPIP ---
Stationary ECG Study [facility] - ED Test Date: 2017-03-31 Pat Name: JEMIMA STORY Department: Room: - Gender: F Activity Specialist: : 1985 Requested By: POLA REID Order Number: [id number] Reading MD: Robert Orta Measurements Intervals [place] Rate: 67 P: -3 CA: 125 QRS: 76 QRSD: 93 T: 65 QT: 396 QTc: 418 Interpretive Statements SINUS RHYTHM Electronically Signed On 04-01-2017 5:59:30 EDT by Robert Orta
== END 2017-03-31 23:54 | disposition home or self-care (01) ==
LOC: M ED 19:10
DX: R55 Syncope and collapse (principal); R79.0 Abnormal level of blood mineral; H91.93 Unspecified hearing loss, bilateral; Z96.21 Cochlear implant status; F17.200 Nicotine dependence, unspecified, uncomplicated; Z79.899 Other long term (current) drug therapy; Z88.0 Allergy status to penicillin

== ENCOUNTER 2017-05-13 09:05 | Emergency (ER) | payer OTHER ==
[~2017-05-13] VITALS: Ht 152.4 cm; Wt 41.4 kg
[2017-05-13] MEDS ORDERED: MOTR200T44 PO (11:42)
[2017-05-13 11:51] VITALS: BP 119/70
== END 2017-05-13 11:54 | disposition home or self-care (01) ==
LOC: M ED 09:05
DX: I83.811 Varicose veins of right lower extremity with pain (principal); F17.200 Nicotine dependence, unspecified, uncomplicated; Z88.0 Allergy status to penicillin; Z79.899 Other long term (current) drug therapy

== ENCOUNTER 2017-11-06 14:48 | Outpatient (RCR) | payer OTHER | END 2017-11-20 | LOC: M ST 11-13 12:30 | DX: Z51.89 Encounter for other specified aftercare (principal); H91.90 Unspecified hearing loss, unspecified ear ==

== ENCOUNTER 2017-11-29 12:51 | Outpatient (RCR) | payer OTHER | END 2017-12-21 | LOC: M ST 12:51 | DX: Z51.89 Encounter for other specified aftercare (principal); H91.90 Unspecified hearing loss, unspecified ear ==

== ENCOUNTER 2017-12-24 10:24 | Outpatient (RCR) | payer OTHER | END 2018-01-20 | LOC: M ST 10:24 | DX: Z51.89 Encounter for other specified aftercare (principal); H91.93 Unspecified hearing loss, bilateral ==

== ENCOUNTER 2018-08-17 20:54 | Emergency (ER) | payer OTHER ==
[2018-08-17] MEDS: IBUPROFEN 600 MG TAB PO (22:22)
[2018-08-17] MEDS: BENZONATATE 100 MG CAP PO (22:22)
[2018-08-17 22:56] LABS: INFLUENZA A AMPLIFICATION NEGATIVE (NEGATIVE); INFLUENZA B AMPLIFICATION NEGATIVE (NEGATIVE)
== END 2018-08-17 23:14 | disposition home or self-care (01) ==
LOC: M ED 20:54
DX: J06.9 Acute upper respiratory infection, unspecified (principal); B34.9 Viral infection, unspecified; F17.200 Nicotine dependence, unspecified, uncomplicated
CPT/HCPCS: 87502

== ENCOUNTER 2018-11-17 16:41 | Emergency (ER) | payer OTHER ==
[~2018-11-17] VITALS: Ht 152.4 cm; Wt 40.5 kg
[~2018-11-17 16:41] MED LIST changes: +IBUP-1022 PO; +MOTR200T44 PO; +PSEU1TAB3 PO; +TESS100C PO
[2018-11-17] MEDS ORDERED: VENL150C43 (16:59)
[2018-11-17] MEDS ORDERED: ALPR0.25 (16:59)
[2018-11-17] MEDS ORDERED: GI COCKTAIL 50ML BTL(HYOSCYAMINE/MAALOX/LIDOCAINE VISCOUS)(1:3:1) PO ONE (18:45)
[2018-11-17] MEDS ORDERED: KETOROLAC 30 MG/ML VIAL (J1885) IV ONE (18:45)
[2018-11-17] MEDS ORDERED: NS 1,000 ML IV ONE (18:45)
[2018-11-17] MEDS ORDERED: ONDANSETRON 4MG/2ML VIAL (J2405) IV ONE (18:45)
[2018-11-17 20:09] LABS: BASO # 0.1 10^3/uL (0.0-0.2); BASO % 0.6 % (0.0-1.0); EOS # 0.4 10^3/uL (0.0-0.50); HEMATOCRIT 43.5 % (36.0-47.0); HEMOGLOBIN 14.4 g/dl (12.0-15.5); LYMPH # 3.8 10^3/uL (1.5-4.5); LYMPH % 31.7 % (24.0-44.0); MEAN CORPUSCULAR HEMOGLOBIN 29.7 pg (27.0-33.0); MEAN CORPUSCULAR HGB CONC 33.1 g/dl (32.0-36.5); MEAN CORPUSCULAR VOLUME 89.7 fl (80.0-96.0); MONO # 0.6 10^3/uL (0.0-0.8); MONO % 5.4 % (0.0-5.0); PLATELET COUNT, AUTOMATED 273 10^3/uL (150-450); RED BLOOD COUNT 4.85 10^6/uL (4.00-5.40); WHITE BLOOD COUNT 11.8 10^3/uL (4.0-10.0)
[2018-11-17 20:31] LABS: HCG, SERUM QUALITATIVE NEGATIVE (NEGATIVE)
[2018-11-17 20:33] LABS: BLOOD UREA NITROGEN 5 MG/DL (7-18); CALCIUM LEVEL 8.9 MG/DL (8.5-10.1); CARBON DIOXIDE LEVEL 25 MEQ/L (21-32); CHLORIDE LEVEL 109 MEQ/L (98-107); CREATININE FOR GFR 0.63 MG/DL (0.55-1.30); GLOMERULAR FILTRATION RATE > 60.0 (>60); GLUCOSE, FASTING 84 MG/DL (70-100); LIPASE 109 U/L (73-393); POTASSIUM SERUM 3.5 MEQ/L (3.5-5.1); SODIUM LEVEL 142 MEQ/L (136-145)
[2018-11-17] MEDS ORDERED: ISOVUE-370 76% 100ML VIAL (Q9967) As Ordered ONE (20:37)
--- NOTE | 2018-11-17 21:25 | REPVR ---
EXAM: US Pelvis Complete, Transabdominal EXAM DATE/TIME: 11/17/2018 8:32 PM CLINICAL HISTORY: 33 years old, female; Pain and signs and symptoms; Menstruation abnormalities; Excessive menstruation; With irregular cycle; Abdominal pain; Lower abdomen; Prior surgery; Surgery date: 6+ months; Surgery type: Tubal; Additional info: Heavy vag bleeding x 1 mo TECHNIQUE: Real-time transabdominal pelvic ultrasound with image documentation. Complete exam. COMPARISON: US PELVIC NON-OB COMPLETE 08/24/2012 6:40 PM FINDINGS: Uterus/cervix: The uterus is retroverted. The uterus measures 8.2 CM in length by 4.6 CM in AP dimension by 5.9 cm transverse dimension. The endometrium measures approximately 1 CM in thickness and probably secretory type endometrium. Right adnexa: The right ovary measures 3.0 CM in length by 1.3 CM in thickness. There is vascular flow the right ovary. Left adnexa: The left ovary measures 3.3 CM in length by 2.4 CM in thickness. The left ovary measures 3.1 CM in length by 2.3 CM in thickness. 1.5 CM hemorrhagic cyst of the left ovary. There is vascular flow noted left ovary. There was a 3 CM cyst left ovary in 2011. Free fluid: None. Bladder: Normal appearing urinary bladder. IMPRESSION: 1. Retroverted uterus. 2. 1.5 CM hemorrhagic cyst left ovary recommend followup study to ensure that this resolves. Electronically signed by: Young Cooper On 11/17/2018 21:24:46 PM
--- NOTE | 2018-11-17 21:31 | REP ---
Clinical: Generalized abdominal pain and menorrhagia. Technique: Axial contrast enhanced images from the lung bases to the pubic symphysis using 100 ml Isovue 370 intravenous contrast material with coronal and sagittal re-formations. Comparison: 05/28/2012. Findings: Lung bases are clear. Visualized heart and pericardium normal. Liver, spleen, pancreas, bilateral adrenal glands and kidneys are normal. Evidence for prior cholecystectomy. The enteric system is without obstruction or acute inflammatory process. Evaluation of the pelvis demonstrates enlarged heterogeneous retroverted uterus and 1.7 cm left ovarian cyst likely dominant follicle. No ascites. No free air. No obvious adenopathy. Abdominal aorta and vasculature without aneurysm or dissection. Surrounding musculoskeletal structures are intact without focal osseous abnormality. Impression: 1. Enlarged heterogeneous retroverted uterus and 1.7 cm left ovarian cyst should be correlated with physical examination and pelvic ultrasound. 2. No further acute abdominopelvic pathology appreciated. 3. Specifically, no adenopathy, ascites, or focal inflammatory stranding noted. Electronically Signed by Khurram Bang MD 11/17/2018 09:23 P
[2018-11-17] MEDS ORDERED: DICY10CA13 PO (22:22)
[2018-11-17] MEDS ORDERED: REGL10TA6 PO (22:22)
[2018-11-17 22:35] VITALS: BP 124/74
--- NOTE | 2018-11-18 12:36 | ED PDOC ---
Post-Departure Follow-Up [facility] advanced registered nurse and [facility] faxed formal report of pelvic us for fu Brittany Timmons MD Nov 18, 2018 12:36
== END 2018-11-17 22:34 | disposition home or self-care (01) ==
LOC: M ED 16:41
DX: N93.8 Other specified abnormal uterine and vaginal bleeding (principal); N92.0 Excessive and frequent menstruation with regular cycle; R10.9 Unspecified abdominal pain; R11.0 Nausea; D64.9 Anemia, unspecified; H91.93 Unspecified hearing loss, bilateral; F17.200 Nicotine dependence, unspecified, uncomplicated; Z88.0 Allergy status to penicillin; Z79.899 Other long term (current) drug therapy
CPT/HCPCS: 36415; 74177; 76830; 76856; 80048; 81001; 83690; 84443; 84703; 85025; 86850; 86900; 86901; 87086; 93976; 96361; 96374; 96375; 99284; J1885; J2405; Q9967

== ENCOUNTER 2019-03-17 20:31 | Emergency (ER) | payer OTHER ==
[~2019-03-17] VITALS: Ht 152.4 cm; Wt 40.9 kg
[~2019-03-17 20:31] MED LIST changes: +ALPR0.25; +DICY10CA13 PO; +REGL10TA6 PO; +VENL150C43
[2019-03-17] MEDS ORDERED: BUSP5TA (20:39)
[2019-03-17 21:35] LABS: BASO # 0.1 10^3/uL (0.0-0.2); BASO % 0.6 % (0.0-1.0); EOS # 0.5 10^3/uL (0.0-0.50); EOS % 4.3 % (0.0-3.0); HEMATOCRIT 42.6 % (36.0-47.0); HEMOGLOBIN 14.3 g/dl (12.0-15.5); LYMPH # 4.2 10^3/uL (1.5-4.5); MEAN CORPUSCULAR HEMOGLOBIN 28.8 pg (27.0-33.0); MEAN CORPUSCULAR HGB CONC 33.6 g/dl (32.0-36.5); MEAN CORPUSCULAR VOLUME 85.9 fl (80.0-96.0); MONO # 0.8 10^3/uL (0.0-0.8); MONO % 7.2 % (0.0-5.0); NEUTROPHILS % 47.6 % (36.0-66.0); PLATELET COUNT, AUTOMATED 265 10^3/uL (150-450); RED BLOOD COUNT 4.96 10^6/uL (4.00-5.40); WHITE BLOOD COUNT 10.4 10^3/uL (4.0-10.0)
[2019-03-17 21:41] LABS: HCG, SERUM QUALITATIVE NEGATIVE (NEGATIVE)
[2019-03-17 21:48] LABS: ALBUMIN 4.2 GM/DL (3.2-5.2); ALT/SGPT 24 U/L (12-78); BILIRUBIN,DIRECT < 0.1 MG/DL (0.0-0.2); BILIRUBIN,TOTAL 0.3 MG/DL (0.2-1.0); BLOOD UREA NITROGEN 14 MG/DL (7-18); CALCIUM LEVEL 9.5 MG/DL (8.5-10.1); CARBON DIOXIDE LEVEL 26 MEQ/L (21-32); CHLORIDE LEVEL 106 MEQ/L (98-107); CREATININE FOR GFR 0.81 MG/DL (0.55-1.30); GLOMERULAR FILTRATION RATE > 60.0 (>60); GLUCOSE, FASTING 84 MG/DL (70-100); LIPASE 118 U/L (73-393); POTASSIUM SERUM 3.3 MEQ/L (3.5-5.1); SODIUM LEVEL 140 MEQ/L (136-145); TOTAL PROTEIN 7.6 GM/DL (6.4-8.2)
[2019-03-17] MEDS ORDERED: GI COCKTAIL 50ML BTL(HYOSCYAMINE/MAALOX/LIDOCAINE VISCOUS)(1:3:1) PO ONE (23:30)
[2019-03-17] MEDS ORDERED: PANTOPRAZOLE 40MG INJ (PROTONIX) (C9113) IV ONE (23:30)
[2019-03-17] MEDS ORDERED: ONDANSETRON 4MG/2ML VIAL (J2405) IV ONE (23:30)
[2019-03-17] MEDS ORDERED: SUCRALFATE 1 GM TAB PO ONE (23:30)
[2019-03-17] MEDS ORDERED: NS 1,000 ML IV ONE (23:30)
[2019-03-18] MEDS ORDERED: ONDANSETRON 4 MG ORAL DISINTEGRATING TAB (Q0162 PER 1MG) PO ONE (00:15)
[2019-03-18] MEDS ORDERED: PANTOPRAZOLE 40MG TAB (PROTONIX) PO ONE (00:15)
[2019-03-18] MEDS ORDERED: OMEP-218 PO (00:45)
[2019-03-18] MEDS ORDERED: CARA1TAB6 PO (00:45)
[2019-03-18 01:13] VITALS: BP 122/70
== END 2019-03-18 01:16 | disposition home or self-care (01) ==
LOC: M ED 20:31
DX: R10.13 Epigastric pain (principal); H91.93 Unspecified hearing loss, bilateral; Z79.899 Other long term (current) drug therapy; Z88.0 Allergy status to penicillin; F17.210 Nicotine dependence, cigarettes, uncomplicated
CPT/HCPCS: 36415; 80048; 80076; 81001; 83690; 84703; 85025; 87086; 99284; Q0162

== ENCOUNTER → 2019-11-03 | Outpatient (REF) | payer OTHER ==
[~2019-11-03] MED LIST changes: +BUSP5TA; +CARA1TAB6 PO; +OMEP-218 PO
[2019-11-03 18:40] LABS: BASO # 0.1 10^3/uL (0.0-0.2); BASO % 0.7 % (0.0-1.0); EOS # 0.3 10^3/uL (0.0-0.5); EOS % 3.4 % (0.0-3.0); HEMATOCRIT 44.8 % (36.0-47.0); LYMPH % 35.7 % (24.0-44.0); MEAN CORPUSCULAR HEMOGLOBIN 28.5 pg (27.0-33.0); MEAN CORPUSCULAR HGB CONC 31.3 g/dl (32.0-36.5); MEAN CORPUSCULAR VOLUME 91.2 fl (80.0-96.0); MONO # 0.8 10^3/uL (0.0-0.8); NEUTROPHILS # 4.3 10^3/uL (1.5-8.5); PLATELET COUNT, AUTOMATED 344 10^3/uL (150-450); RED BLOOD COUNT 4.91 10^6/uL (4.00-5.40); WHITE BLOOD COUNT 8.5 10^3/uL (4.0-10.0)
[2019-11-03 19:07] LABS: ALBUMIN 4.1 GM/DL (3.2-5.2); ALT/SGPT 23 U/L (12-78); BILIRUBIN,TOTAL 0.4 MG/DL (0.2-1.0); BLOOD UREA NITROGEN 6 MG/DL (7-18); CALCIUM LEVEL 8.9 MG/DL (8.5-10.1); CARBON DIOXIDE LEVEL 28 MEQ/L (21-32); CHLORIDE LEVEL 105 MEQ/L (98-107); CREATININE FOR GFR 0.67 MG/DL (0.55-1.30); GLOMERULAR FILTRATION RATE > 60.0 (>60); GLUCOSE, FASTING 72 MG/DL (70-100); POTASSIUM SERUM 3.7 MEQ/L (3.5-5.1); SODIUM LEVEL 139 MEQ/L (136-145); TOTAL PROTEIN 7.2 GM/DL (6.4-8.2)
[2019-11-04 10:38] LABS: VITAMIN B12 LEVEL 472 PG/ML (247-911)
== END ==
LOC: M SFHCPLAZ 13:53
PROVIDERS: ATTEND Nurse Practitioner Family
DX: R51 Headache (principal)

== ENCOUNTER 2020-01-14 14:43 | Emergency (ER) | payer OTHER ==
[~2020-01-14] VITALS: Ht 152.4 cm; Wt 41.7 kg
[2020-01-14] MEDS ORDERED: ONDANSETRON 4MG/2ML VIAL IV ONE (16:45)
[2020-01-14] MEDS ORDERED: MORPHINE 2 MG/ML 1ML VIAL (J2270) IV ONE (16:45)
[2020-01-14] MEDS ORDERED: NS 1,000 ML IV ONE ×2 (16:45→18:30)
[2020-01-14 17:35] LABS: BASO # 0.1 10^3/uL (0.0-0.2); EOS # 0.3 10^3/uL (0.0-0.5); HEMOGLOBIN 13.6 g/dl (12.0-15.5); LYMPH # 2.8 10^3/uL (1.5-5.0); LYMPH % 34.1 % (24.0-44.0); MEAN CORPUSCULAR HEMOGLOBIN 29.8 pg (27.0-33.0); MEAN CORPUSCULAR VOLUME 87.7 fl (80.0-96.0); MONO # 0.5 10^3/uL (0.0-0.8); MONO % 6.3 % (0.0-5.0); NEUTROPHILS # 4.6 10^3/uL (1.5-8.5); NEUTROPHILS % 55.2 % (36.0-66.0); PLATELET COUNT, AUTOMATED 243 10^3/uL (150-450); RED BLOOD COUNT 4.56 10^6/uL (4.00-5.40); WHITE BLOOD COUNT 8.3 10^3/uL (4.0-10.0)
[2020-01-14 18:09] LABS: ALBUMIN 3.9 GM/DL (3.2-5.2); BILIRUBIN,DIRECT 0.2 MG/DL (0.0-0.2); BILIRUBIN,TOTAL 0.4 MG/DL (0.2-1.0); TOTAL PROTEIN 7.1 GM/DL (6.4-8.2)
[2020-01-14] MEDS: GASTROGRAFIN SOLUTION 30ML PO SCH ×2 (18:23→18:24)
[2020-01-14 18:45] LABS: INR 1.12; PROTHROMBIN TIME 14.1 SECONDS (11.8-14.0)
[2020-01-14 18:46] LABS: PARTIAL THROMBOPLASTIN TIME 31.4 SECONDS (25.0-38.4)
[2020-01-14] MEDS ORDERED: KETOROLAC 30 MG/ML 1ML VIAL IV ONE (19:00)
[2020-01-14] MEDS ORDERED: DICYCLOMINE 10 MG CAP PO ONE ×2 (19:30→20:30)
--- NOTE | 2020-01-14 20:04 | REPVR ---
PROCEDURE INFORMATION: Exam: US Pelvis Complete, Transabdominal Exam date and time: 01/14/2020 7:35 PM Age: 34 years old Clinical indication: Pelvic pain; Additional info: Right pelvic pain, heavy vaginal bleeding TECHNIQUE: Imaging protocol: Real-time transabdominal pelvic ultrasound with image documentation. Complete exam. COMPARISON: US PELVIC NON-OB COMPLETE 11/17/2018 8:01 PM FINDINGS: Uterus/cervix: The uterus measures 9.2 x 4.2 x 5.0 cm. No uterine mass identified. The endometrial thickness is 0.4 cm, which is within normal limits. Trace endometrial fluid is visualized. The uterus is retroverted. Right adnexa: The right ovary measures 3.0 x 1.7 x 2.8 cm. There is preservation of blood flow within the right ovary. Right ovarian follicles are identified. Within the right ovary, there is an ovoid lesion of increased echogenicity measuring 1.6 x 1.4 x 1.7 cm, suggestive of a complex/hemorrhagic cyst. This is new compared to the prior study. Left adnexa: The left ovary measures 2.7 x 2.7 x 2.0 cm. There is preservation of blood flow within the left ovary. Left ovarian follicles are identified. There is resolution of the previously visualized left ovarian hemorrhagic cyst. Free fluid: None. Bladder: The bladder measures 8.0 x 3.1 x 7.8 cm. No visualized bladder wall thickening. IMPRESSION: 1. Trace endometrial fluid is visualized. 2. Within the right ovary, there is an ovoid echogenic lesion, suggestive of a complex/hemorrhagic cyst. This is new compared to the prior study. Follow-up ultrasonography recommended. 3. Left ovarian follicles are identified. There is resolution of the previously visualized left ovarian hemorrhagic cyst. 4. Additional findings described above. Electronically signed by: Juan Motta On 01/14/2020 20:04:17 PM
[2020-01-14] MEDS ORDERED: DICY10CA13 PO ×2 (20:24→20:48)
[2020-01-14 20:45] VITALS: BP 110/68
--- NOTE | 2020-01-15 13:48 | ED PDOC ---
Post-Departure Follow-Up certified letter sent to pt re formal read of pelvic us for fu. obtain pcp name and fax report. if no pcp refer to [facility] and fax there Brittany Timmons MD Jan 15, 2020 13:48
== END 2020-01-14 20:48 | disposition home or self-care (01) ==
LOC: M ED 14:43
DX: R10.31 Right lower quadrant pain (principal); R19.7 Diarrhea, unspecified; N83.201 Unspecified ovarian cyst, right side; K21.9 Gastro-esophageal reflux disease without esophagitis; F17.218 Nicotine dependence, cigarettes, with other nicotine-induced disorders; Z88.0 Allergy status to penicillin; Z96.21 Cochlear implant status
CPT/HCPCS: 36415; 76856; 80047; 80076; 81001; 83690; 84702; 85025; 85610; 85730; 86850; 86900; 86901; 87088; 87186; 93976; 96361; 96374; 96375; 99285; J1885; J2270; J2405

== ENCOUNTER → 2020-05-25 | Outpatient (CLI) | payer OTHER ==
--- NOTE | 2020-06-21 13:42 | REP ---
PELVIC ULTRASOUND CLINICAL: Follow-up ovarian cyst with right lower quadrant pain. TECHNIQUE: Transabdominal pelvic ultrasound with color Doppler evaluation. COMPARISON: 01/14/2020. FINDINGS: Ultrasound examination again demonstrates heterogeneous retroverted uterus measuring 9.4 x 3.8 x 5.9 cm. The endometrial complex measures 10 mm in thickness. No discrete uterine or endometrium abnormality identified. The right ovary is normal in appearance and vascularity measuring 2.2 x 1.4 x 1.5 cm (RI 0.56). Multiple follicles are identified without discrete cyst. The left ovary is not visualized due to overlying interposed bowel gas. No pelvic fluid or adnexal mass lesion. Bladder is normal and measures 7.8 x 6.7 x 1.4 cm. IMPRESSION: Normal retroverted uterus and right ovary. Previously noted right ovarian cyst has resolved. Left ovary not visualized due to overlying bowel gas. MTDD
== END ==
LOC: M PLAIMG 11:13
PROVIDERS: ATTEND Family Medicine
DX: R10.2 Pelvic and perineal pain (principal)

== ENCOUNTER 2020-12-07 16:13 | Emergency (ER) | payer OTHER ==
[~2020-12-07] VITALS: Ht 152.4 cm; Wt 38.6 kg
[2020-12-07] MEDS ORDERED: NS 1,000 ML IV ONE (16:55)
[2020-12-07] MEDS ORDERED: ONDANSETRON 4MG/2ML VIAL IV ONE (17:00)
[2020-12-07] MEDS ORDERED: MORPHINE 2 MG/ML 1ML VIAL (J2270) IV PRN (17:00)
--- NOTE | 2020-12-07 18:45 | REP ---
INDICATION: severe right lower pain ?torsion. COMPARISON: 05/25/2020. TECHNIQUE: Multiple ultrasonographic images of the pelvis including Doppler ultrasound. A note from the lead enterprise architect states that the patient is nonverbal, therefore no endovaginal imaging is performed. The study is performed with transabdominal imaging. Patient complains of right sided abdominal pain. FINDINGS: The uterus is anteverted and normal size measuring 7.8 x 5.2 x 4.9 cm. The endometrium is significantly thickened for patient age measuring up to 14 mm. Consideration might be given to gynecologic consultation for endometrial tissue sampling. Right ovary: The right ovary measures 3.3 x 2.3 x 2.9 cm and is normal size. However, there is a complex mass within the right ovary containing thickened irregular septa measuring 1.5 x 1.6 x 1.6 cm. This is nonspecific and could represent a multiloculated cyst, infected cyst or neoplasm. Pelvic MRI might be considered for follow-up imaging. Left ovary: The left ovary measures 2.6 x 1.8 x 1.7 cm and is normal size. There is no dominant left ovarian mass or cyst. With Doppler evaluation there is vascular flow in both right and left ovaries. There is a cyst of index in the parenchymal arteries of the right ovary is 0.58 the left ovary 0.47. There is a small volume of free fluid in the posterior cul-de-sac. IMPRESSION: There is a complex mass in the right ovary measuring 1.6 cm as discussed above. Gynecologic consultation should be considered. Pelvic MRI might be considered for follow-up imaging. <Electronically signed by Gume Nails > 12/07/20 0811
[2020-12-07 18:51] LABS: BASO % 0.4 % (0.0-1.0); EOS # 0.2 10^3/uL (0.0-0.5); EOS % 1.7 % (0.0-3.0); HEMATOCRIT 41.6 % (36.0-47.0); HEMOGLOBIN 13.8 g/dl (12.0-15.5); LYMPH # 3.1 10^3/uL (1.5-5.0); LYMPH % 29.3 % (24.0-44.0); MEAN CORPUSCULAR HEMOGLOBIN 29.2 pg (27.0-33.0); MEAN CORPUSCULAR HGB CONC 33.2 g/dl (32.0-36.5); MEAN CORPUSCULAR VOLUME 88.1 fl (80.0-96.0); MONO # 0.7 10^3/uL (0.0-0.8); MONO % 6.8 % (2.0-8.0); NEUTROPHILS # 6.4 10^3/uL (1.5-8.5); NEUTROPHILS % 61.5 % (36.0-66.0); PLATELET COUNT, AUTOMATED 264 10^3/uL (150-450); RED BLOOD COUNT 4.72 10^6/uL (4.00-5.40); WHITE BLOOD COUNT 10.5 10^3/uL (4.0-10.0)
[2020-12-07] MEDS ORDERED: HYDR-3715 PO (18:56)
[2020-12-07 19:23] LABS: BLOOD UREA NITROGEN 12 MG/DL (7-18); CALCIUM LEVEL 9.1 MG/DL (8.5-10.1); CARBON DIOXIDE LEVEL 24 MEQ/L (21-32); CHLORIDE LEVEL 110 MEQ/L (98-107); CREATININE FOR GFR 0.48 MG/DL (0.55-1.30); GLOMERULAR FILTRATION RATE > 60.0 (>60); GLUCOSE, FASTING 80 MG/DL (70-100); POTASSIUM SERUM 3.6 MEQ/L (3.5-5.1); SODIUM LEVEL 142 MEQ/L (136-145)
[2020-12-07 19:46] VITALS: BP 121/70
--- NOTE | 2020-12-08 01:10 | ECGEPIP ---
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
== END 2020-12-07 19:48 | disposition home or self-care (01) ==
LOC: M ED 16:13
DX: N83.201 Unspecified ovarian cyst, right side (principal); R55 Syncope and collapse; R56.9 Unspecified convulsions; F41.9 Anxiety disorder, unspecified; H91.3 Deaf nonspeaking, not elsewhere classified; Z96.21 Cochlear implant status; Z88.0 Allergy status to penicillin; Z79.899 Other long term (current) drug therapy
CPT/HCPCS: 36415; 76856; 80048; 84443; 84702; 85025; 93005; 93041; 93976; 94760; 96361; 96374; 96375; 99285; J2270; J2405

== ENCOUNTER → 2021-01-30 | Outpatient (CLI) | payer OTHER ==
[~2021-01-30] MED LIST changes: +E-Z-GAS II EFFERVESCENT PACKET (SODIUM BICARB./CITRIC ACID/SIMETHICONE) As Ordered ONE; +E-Z-HD 98% w/w 340GM SUSP BTL As Ordered ONE; +E-Z-PAQUE 96% w/w SUSP 176GM BTL As Ordered ONE; +HYDR-3715 PO
--- NOTE | 2021-01-30 18:48 | REP ---
INDICATION: GERD. COMPARISON: None. TECHNIQUE: The procedure was performed under the direct supervision of Dr. Gaxiola. The images were reviewed with Dr. Gaxiola. Liquid barium and gas producing crystals were given in the erect position as well as liquid barium in the prone oblique position in order to perform a double contrast upper GI examination. Additionally liquid barium was given at the end of the examination in order to perform a small bowel follow through. A combination od fluoroscopy, spot films and last image hold technology was utilized, 3.7 minutes of fluoro time was utilized for this procedure. FINDINGS: The systems technician film shows no organomegaly or pathological masses. The intestinal gas pattern is non-specific. There are surgical clips noted in the right upper quadrant. There are tubal ligation clips noted within the pelvis. The oral and pharyngeal stages of deglutition are unremarkable. Esophageal transport is prompt and efficient and there is no esophagitis, stricture, mucosal ring or hiatal hernia. The stomach corona are normally outlined. The rugal folds are smooth and regular. There is no gastritis neoplasm or ulcer disease. The duodenal corona are normally outlined . The mucosal folds are smooth and regular. There is no duodenitis pancreatitis peptic ulcer disease or neoplasm. The visualized portion of the proximal small bowel appears normal in course and caliber. The barium column was followed through the small bowel to the level of the terminal ileum. Small bowel transit time is rapid as there is contrast seen in the cecum at the 0 minutes film. During fluoroscopy gentle palpation shows all loops are freely movable and pliable. There are no fixed or angulated loops. The small bowel mucosal pattern is normal in course and caliber. There is no transition to suggest a partial small-bowel obstruction. Spot filming of the terminal ileum shows it to be unremarkable. IMPRESSION: Small bowel transit time is rapid as there is contrast seen in the cecum on the 0 minutes film. Otherwise, unremarkable double contrast upper GI and small bowel follow through examination. <Electronically signed by Mark Gipson > 01/30/21 1508 <Electronically signed by Gume Gaxiola > 01/30/21 [id number]
== END ==
LOC: M RAD 09:24
PROVIDERS: ATTEND Nurse Practitioner Family
DX: K21.9 Gastro-esophageal reflux disease without esophagitis (principal)

== ENCOUNTER → 2021-02-03 | Outpatient (CLI) | payer OTHER ==
[~2021-02-03] MED LIST changes: -E-Z-GAS II EFFERVESCENT PACKET (SODIUM BICARB./CITRIC ACID/SIMETHICONE) As Ordered ONE; -E-Z-HD 98% w/w 340GM SUSP BTL As Ordered ONE; -E-Z-PAQUE 96% w/w SUSP 176GM BTL As Ordered ONE
--- NOTE | 2021-02-05 07:23 | REP ---
INDICATION: N83.201 RT OVARIAN CYST COMPARISON: 12/07/2020 TECHNIQUE: Transabdominal pelvic ultrasound followed by transvaginal examination for better evaluation of the endometrium and adnexa with color Doppler evaluation of the ovaries. FINDINGS: Bladder is unremarkable and measures 5.1 x 2.1 x 6.6 cm. Normal anteverted uterus measures 8.0 x 4.6 x 5.3 cm. The endometrial complex measures 7.2 mm thickness. No discrete uterine or endometrial abnormalities are appreciated. Bilateral ovaries are normal in appearance and vascularity without evidence for torsion. Right ovary measures 2.7 x 1.5 x 1.7 cm; R I = 0.56. Left ovary measures 2.6 x 1.3 x 2.0 cm; R I = 0.52. No pelvic fluid or adnexal mass lesion. IMPRESSION: Normal pelvic ultrasound. Previous ovarian cyst resolved. <Electronically signed by Khurram Bang > 02/05/21 0719
== END ==
LOC: M WHC 13:54
PROVIDERS: ATTEND Nurse Practitioner Women's Health
DX: N83.201 Unspecified ovarian cyst, right side (principal)

== ENCOUNTER → 2021-04-03 | Outpatient (REF) | payer OTHER ==
[2021-04-03 21:31] LABS: CLOSTRIDIUM DIFFICILE PCR NEGATIVE (NEGATIVE)
[2021-04-11 08:15] LABS: CALPROTECTIN STOOL <16 ug/g (0-120); FATS NEUTRAL Normal (.); FATS TOTAL Normal (.); H PYLORI STOOL ANTIGEN Positive (Negative)
== END ==
LOC: M LAB REF 16:51
PROVIDERS: ATTEND Internal Medicine Gastroenterology
DX: R19.7 Diarrhea, unspecified (principal)

== ENCOUNTER → 2021-04-12 | Outpatient (CLI) | payer OTHER ==
[2021-04-12 14:12] LABS: BASO # 0.1 10^3/uL (0.0-0.2); BASO % 0.8 % (0.0-1.0); EOS # 0.4 10^3/uL (0.0-0.5); EOS % 4.3 % (0.0-3.0); HEMATOCRIT 43.6 % (36.0-47.0); HEMOGLOBIN 14.3 g/dl (12.0-15.5); LYMPH # 3.1 10^3/uL (1.5-5.0); LYMPH % 36.2 % (24.0-44.0); MEAN CORPUSCULAR HEMOGLOBIN 29.1 pg (27.0-33.0); MEAN CORPUSCULAR HGB CONC 32.8 g/dl (32.0-36.5); MEAN CORPUSCULAR VOLUME 88.8 fl (80.0-96.0); MONO # 0.8 10^3/uL (0.0-0.8); MONO % 8.9 % (2.0-8.0); NEUTROPHILS # 4.2 10^3/uL (1.5-8.5); NEUTROPHILS % 49.7 % (36.0-66.0); PLATELET COUNT, AUTOMATED 316 10^3/uL (150-450); RED BLOOD COUNT 4.91 10^6/uL (4.00-5.40); WHITE BLOOD COUNT 8.5 10^3/uL (4.0-10.0)
[2021-04-12 14:47] LABS: ALBUMIN 4.3 GM/DL (3.2-5.2); ALT/SGPT 21 U/L (12-78); BILIRUBIN,TOTAL 0.5 MG/DL (0.2-1.0); BLOOD UREA NITROGEN 4 MG/DL (7-18); CALCIUM LEVEL 9.1 MG/DL (8.5-10.1); CARBON DIOXIDE LEVEL 23 MEQ/L (21-32); CHLORIDE LEVEL 109 MEQ/L (98-107); CREATININE FOR GFR 0.65 MG/DL (0.55-1.30); FOLATE 12.6 NG/ML (>5.4); FREE T4 1.06 NG/DL (0.76-1.46); GLOMERULAR FILTRATION RATE > 60.0 (>60); GLUCOSE, FASTING 57 MG/DL (70-100); POTASSIUM SERUM 3.9 MEQ/L (3.5-5.1); SODIUM LEVEL 140 MEQ/L (136-145); TOTAL PROTEIN 7.6 GM/DL (6.4-8.2); VITAMIN B12 LEVEL 429 PG/ML (247-911)
== END ==
LOC: M PLALAB 09:18
PROVIDERS: ATTEND Nurse Practitioner Family
DX: R20.0 Anesthesia of skin (principal); F41.1 Generalized anxiety disorder

== ENCOUNTER → 2021-05-04 | Outpatient (CLI) | payer OTHER ==
[~2021-05-04] MED LIST changes: +DICY10SO PO; +OMEP-221 PO; +SERT25TA21 PO
== END ==
LOC: M LABSMTC 10:09
PROVIDERS: ATTEND Anesthesiology
DX: Z01.818 Encounter for other preprocedural examination (principal); Z11.52 Encounter for screening for COVID-19

== ENCOUNTER 2021-05-09 08:14 | Day surgery (SDC) | payer OTHER ==
[~2021-05-09] VITALS: Ht 152.4 cm; Wt 40.7 kg
[~2021-05-09 08:14] MED LIST changes: +LIDOCAINE 2% 100MG/5ML SDV (FOR ANES.) As Ordered ONE; +NS 1,000 ML IV ONE; +propofoL 200 MG/20 ML VIAL As Ordered ONE
[2021-05-09] MEDS ORDERED: MELA10CA6 PO (09:06)
--- NOTE | 2021-05-09 09:45 | ROOR ---
Patient Name: Samaria Beckman Procedure Date: 05/09/2021 9:21 AM Date of : 1985 Age: 36 Room: [facility] Gender: Female Note Status: Finalized Procedure: Upper GI endoscopy Indications: Dysphagia, Epigastric abdominal pain Providers: Alex Santana MD Referring MD: Lilly Garcia Requesting Provider: Medicines: Monitored Anesthesia Care Complications: No immediate complications. Procedure: Pre-Anesthesia Assessment: - Prior to the procedure, a History and Physical was performed, and patient medications and allergies were reviewed. The patient is competent. The risks and benefits of the procedure and the sedation options and risks were discussed with the patient. All questions were answered and informed consent was obtained. Patient identification and proposed procedure were verified by the physician, the nurse and the anesthesiologist in the procedure room. Mental Status Examination: alert and oriented. Airway Examination: normal oropharyngeal airway and neck mobility. Respiratory Examination: clear to auscultation. CV Examination: normal. Prophylactic Antibiotics: The patient does not require prophylactic antibiotics. Prior Anticoagulants: The patient has taken no previous anticoagulant or antiplatelet agents. ASA Grade Assessment: II - A patient with mild systemic disease. After reviewing the risks and benefits, the patient was deemed in satisfactory condition to undergo the procedure. The anesthesia plan was to use monitored anesthesia care (MAC). Immediately prior to administration of medications, the patient was re-assessed for adequacy to receive sedatives. The heart rate, respiratory rate, oxygen saturations, blood pressure, adequacy of pulmonary ventilation, and response to care were monitored throughout the procedure. The physical status of the patient was re-assessed after the procedure. The Endoscope was introduced through the mouth, and advanced to the second part of duodenum. The upper GI endoscopy was accomplished without difficulty. The patient tolerated the procedure well. Findings: No gross lesions were noted in the entire esophagus. Biopsies were obtained from the proximal and distal esophagus with cold forceps for histology of suspected eosinophilic esophagitis. Verification of patient identification for the specimen was done by the physician and nurse using the patient's name, date and medical record number. Estimated blood loss was minimal. Scattered moderate inflammation characterized by erythema and granularity was found in the gastric antrum. Biopsies were taken with a cold forceps for Helicobacter pylori testing. The duodenal bulb and second portion of the duodenum were normal. Biopsies for histology were taken with a cold forceps for evaluation of celiac disease. Impression: - No gross lesions in esophagus. Biopsied. - Gastritis. Biopsied. - Normal duodenal bulb and second portion of the duodenum. Biopsied. Recommendation: - Patient has a contact number available for emergencies. The signs and symptoms of potential delayed complications were discussed with the patient. Return to normal activities tomorrow. Written discharge instructions were provided to the patient. - High fiber diet. - Continue present medications. - Await pathology results. - Use sucralfate suspension 1 gram PO QID for 4 weeks. - Return to GI clinic in [facility] (address [address], [address], [place], [facility] [place]) in 4 -- 6 weeks. Please call GI clinic @ [phone] for apppointment date and time. - Return to primary care physician. Procedure Code(s): --- Professional --- 84708, Esophagogastroduodenoscopy, flexible, transoral; with biopsy, single or multiple Diagnosis Code(s): --- Professional --- K29.70, Gastritis, unspecified, without bleeding R13.10, Dysphagia, unspecified R10.13, Epigastric pain CPT copyright 2019 [employer]. All rights reserved. The codes documented in this report are preliminary and upon scale agent review may be revised to meet current compliance requirements. Alex Santana MD Alex Santana MD 05/09/2021 9:44:45 AM Electronically signed by Alex Santana MD Number of Addenda: 0 Note Initiated On: 05/09/2021 9:21 AM Estimated Blood Loss: Estimated blood loss was minimal.
[2021-05-09 10:07] VITALS: BP 116/61
== END 2021-05-09 10:09 | disposition home or self-care (01) ==
LOC: M OPP 08:14
PROVIDERS: ATTEND Internal Medicine Gastroenterology
DX: K29.70 Gastritis, unspecified, without bleeding (principal); B96.81 Helicobacter pylori [H. pylori] as the cause of diseases classified elsewhere; R13.10 Dysphagia, unspecified; R10.13 Epigastric pain; Z79.899 Other long term (current) drug therapy; Z88.0 Allergy status to penicillin; F17.210 Nicotine dependence, cigarettes, uncomplicated

== ENCOUNTER → 2021-09-04 | Outpatient (CLI) | payer OTHER ==
[~2021-09-04] MED LIST changes: -LIDOCAINE 2% 100MG/5ML SDV (FOR ANES.) As Ordered ONE; +MELA10CA6 PO; -NS 1,000 ML IV ONE; -propofoL 200 MG/20 ML VIAL As Ordered ONE
[2021-09-04 11:09] LABS: BASO # 0.1 10^3/uL (0.0-0.2); BASO % 0.8 % (0.0-1.0); EOS # 0.2 10^3/uL (0.0-0.5); EOS % 2.1 % (0.0-3.0); HEMATOCRIT 42.7 % (36.0-47.0); LYMPH # 2.3 10^3/uL (1.5-5.0); LYMPH % 21.2 % (24.0-44.0); MEAN CORPUSCULAR HEMOGLOBIN 28.9 pg (27.0-33.0); MEAN CORPUSCULAR HGB CONC 32.8 g/dl (32.0-36.5); MONO # 0.8 10^3/uL (0.0-0.8); MONO % 7.3 % (2.0-8.0); NEUTROPHILS # 7.2 10^3/uL (1.5-8.5); NEUTROPHILS % 68.3 % (36.0-66.0); PLATELET COUNT, AUTOMATED 310 10^3/uL (150-450); RED BLOOD COUNT 4.85 10^6/uL (4.00-5.40); WHITE BLOOD COUNT 10.6 10^3/uL (4.0-10.0)
[2021-09-04 11:29] LABS: HEMOGLOBIN A1c 5.2 %
[2021-09-04 11:38] LABS: ALBUMIN 3.9 GM/DL (3.2-5.2); ALT/SGPT 24 U/L (12-78); BILIRUBIN,DIRECT 0.1 MG/DL (0.0-0.2); BILIRUBIN,TOTAL 0.4 MG/DL (0.2-1.0); BLOOD UREA NITROGEN 5 MG/DL (7-18); CALCIUM LEVEL 9.2 MG/DL (8.5-10.1); CARBON DIOXIDE LEVEL 25 MEQ/L (21-32); CHLORIDE LEVEL 107 MEQ/L (98-107); CHOLESTEROL LEVEL 183 MG/DL (<200); CHOLESTEROL RISK RATIO 2.506 (<5); CREATININE FOR GFR 0.61 MG/DL (0.55-1.30); FREE T3 3.6 PG/ML (2.2-4.0); FREE T4 1.11 NG/DL (0.76-1.46); GLOMERULAR FILTRATION RATE > 60.0 (>60); GLUCOSE, FASTING 89 MG/DL (70-100); HDL CHOLESTEROL 73 MG/DL (>40); LDL CHOLESTEROL 96 MG/DL (<100); NON-HDL-C 110 MG/DL; PHOSPHORUS LEVEL 3.2 MG/DL (2.5-4.9); POTASSIUM SERUM 3.7 MEQ/L (3.5-5.1); SODIUM LEVEL 141 MEQ/L (136-145); TOTAL PROTEIN 7.1 GM/DL (6.4-8.2); TRIGLYCERIDES LEVEL 69 MG/DL (<150)
[2021-09-04 11:39] LABS: TOTAL 25(OH) VITAMIN D 15.9 NG/ML (30.0-100.0)
== END ==
LOC: M EKG 10:02
PROVIDERS: ATTEND Nurse Practitioner Psychiatric/Mental Health
DX: F32.9 Major depressive disorder, single episode, unspecified (principal); F41.1 Generalized anxiety disorder

== ENCOUNTER → 2021-11-29 | Outpatient (REF) | payer OTHER ==
[~2021-11-29] MED LIST changes: +OMEP-173 PO; -OMEP-218 PO; -OMEP-221 PO; +OMEP40CA5 PO
[2021-11-29 21:52] LABS: GC DNA AMPLIFICATION NEGATIVE (NEGATIVE)
== END ==
LOC: M LAB REF 19:33
PROVIDERS: ATTEND Physician Assistant
DX: R10.30 Lower abdominal pain, unspecified (principal)

== ENCOUNTER 2022-11-18 07:25 | Emergency (ER) | payer OTHER ==
[~2022-11-18] VITALS: Ht 152.4 cm; Wt 41.4 kg
[2022-11-18] MEDS ORDERED: NS 1,000 ML IV SCH ×2 (07:35)
[2022-11-18 08:06] LABS: VENOUS BASE EXCESS -0.5 (-2.0-2.0); VENOUS HCO3 25.3 MEQ/L (23.0-27.0); VENOUS O2 SATURATION 92.9 % (60.0-80.0); VENOUS PARTIAL PRESSURE CO2 45.8 mmHg (38.0-50.0); VENOUS PARTIAL PRESSURE O2 66.8 mmHg (30.0-50.0); VENOUS STANDARD HCO3 23.9 MEQ/L; VENOUS TOTAL CO2 26.7 MEQ/L (24.0-28.0)
[2022-11-18 08:07] LABS: BASO # 0.1 10^3/uL (0.0-0.2); BASO % 1.3 % (0.0-1.0); EOS # 0.2 10^3/uL (0.0-0.5); EOS % 3.2 % (0.0-3.0); HEMATOCRIT 42.1 % (36.0-47.0); HEMOGLOBIN 13.5 g/dl (12.0-15.5); LYMPH # 2.4 10^3/uL (1.5-5.0); LYMPH % 45.2 % (24.0-44.0); MEAN CORPUSCULAR HEMOGLOBIN 26.6 pg (27.0-33.0); MEAN CORPUSCULAR HGB CONC 32.1 g/dl (32.0-36.5); MONO # 0.3 10^3/uL (0.0-0.8); NEUTROPHILS # 2.3 10^3/uL (1.5-8.5); NEUTROPHILS % 44.1 % (36.0-66.0); RED BLOOD COUNT 5.07 10^6/uL (4.00-5.40); WHITE BLOOD COUNT 5.3 10^3/uL (4.0-10.0)
[2022-11-18] MEDS ORDERED: MIRT-10 (08:32)
[2022-11-18] MEDS ORDERED: HYDR-643 (08:32)
[2022-11-18] MEDS ORDERED: CITA20TA7 (08:32)
[2022-11-18 08:36] LABS: ETHYL ALCOHOL (ETHANOL) 0.164 % (0.000-0.010)
[2022-11-18 08:42] LABS: HCG, SERUM QUALITATIVE NEGATIVE (NEGATIVE)
[2022-11-18 08:45] LABS: ALKALINE PHOSPHATASE 154 U/L (46-116); ALT/SGPT 19 U/L (7.0-40); AST/SGOT 30 U/L (<34); BILIRUBIN,DIRECT < 0.1 MG/DL (<0.4); BILIRUBIN,TOTAL 0.2 MG/DL (0.3-1.2); BLOOD UREA NITROGEN < 5 MG/DL (9-23); CALCIUM LEVEL 9.1 MG/DL (8.5-10.1); CARBON DIOXIDE LEVEL 25 MMOL/L (20-31); CHLORIDE LEVEL 111 MMOL/L (98-107); CPK CREATINE PHOSPHOKINASE 244 U/L (34-145); CREATININE FOR GFR 0.51 MG/DL (0.55-1.30); GLOMERULAR FILTRATION RATE > 60.0 (>60); GLUCOSE, FASTING 92 MG/DL (60-100); POTASSIUM SERUM 4.6 MMOL/L (3.5-5.1); SODIUM LEVEL 145 MMOL/L (136-145); THYROID STIMULATING HORMONE 1.304 uIU/ML (0.55-4.78); TOTAL PROTEIN 7.1 G/DL (5.7-8.2)
[2022-11-18 08:46] LABS: AMPHETAMINES LEVEL URINE NEGATIVE (NEGATIVE); BARBITURATES URINE NEGATIVE (NEGATIVE); BENZODIAZEPINES URINE NEGATIVE (NEGATIVE); CANNABINOIDS URINE NEGATIVE (NEGATIVE); METHADONE URINE NEGATIVE (NEGATIVE); OPIATES URINE NEGATIVE (NEGATIVE); PHENCYCLIDINE URINE NEGATIVE (NEGATIVE)
[2022-11-18 08:48] LABS: COCAINE METABOLITE URINE POSITIVE (NEGATIVE)
[2022-11-18 09:19] LABS: RSV AMPLIFICATION NEGATIVE (NEGATIVE)
[2022-11-18 09:34] LABS: OSMOLALITY SERUM 334 MOSM/KG (275-295)
[2022-11-18 12:07] VITALS: BP 133/67
== END 2022-11-18 12:10 | disposition home or self-care (01) ==
LOC: M ED 07:25 → EDBD 07:25 → M ED 12:10
DX: F10.10 Alcohol abuse, uncomplicated (principal); F14.10 Cocaine abuse, uncomplicated; R56.9 Unspecified convulsions; F41.9 Anxiety disorder, unspecified; Z90.49 Acquired absence of other specified parts of digestive tract; Z90.89 Acquired absence of other organs; Z96.21 Cochlear implant status; F17.200 Nicotine dependence, unspecified, uncomplicated; Z88.0 Allergy status to penicillin

== ENCOUNTER → 2024-06-15 | Outpatient (CLI) | payer OTHER ==
[~2024-06-15] MED LIST changes: +CITA20TA7; +DICY-61 PO; -DICY10CA13 PO; +HYDR-643; +MIRT-10
== END ==
LOC: M RAD 15:05
PROVIDERS: ATTEND Nurse Practitioner Adult Health
DX: M79.604 Pain in right leg (principal)